=== PATIENT | female | born 2000 | race Caucasian/White ===

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

== ENCOUNTER 2021-02-16 14:54 | Emergency (ER) | payer OTHER ==
[~2021-02-16] VITALS: Ht 157.5 cm; Wt 59.7 kg
[~2021-02-16 14:54] MED LIST changes: +BACTRIM DS TAB1 EACH PO; +KEFLEX500 MG PO
[2021-02-16] MEDS ORDERED: PRENATAL GUMMI1 EACH PO (16:03)
[2021-02-16] MEDS ORDERED: HYDROCODON-ACE1 EA10 PO (18:13)
[2021-02-16] MEDS ORDERED: ONDANSETRON ODT8 MG PO (18:13)
[2021-02-17] MEDS ORDERED: IBUPROFEN600 MG PO (03:40)
== END 2021-02-16 18:43 | disposition home or self-care (01) ==
LOC: ED 14:54
DX: O02.1 Missed abortion (principal)
CPT/HCPCS: 76801; 81001; 99284-25

== ENCOUNTER 2021-02-17 03:23 | Day surgery (SDC) | payer OTHER ==
[~2021-02-17] VITALS: Ht 157.5 cm; Wt 59.4 kg
[~2021-02-17 03:23] MED LIST changes: +HYDROCODON-ACE1 EA10 PO; +PRENATAL GUMMI1 EACH PO
--- OUTSIDE RECORDS SUMMARY | 2021-02-17 03:30 | XMS ---
PreManage Notification: AMAN MEI Security Signals Intelligence Analysis Manager Events No recent Security Events currently on file CRITERIA MET - [facility] - 2 Visits in 30 Days CARE PROVIDERS TANNER VILLASENOR Nurse Practitioner 10/20/2016-Current LYN PHONE: [phone] LAMONTE FRANK Curriculum Writer: Clinical Current PHONE: [phone] Care Guidelines exist for the following facilities: [facility] ( [facility] [place] VISIT COUNT (12 MO.) [address] [facility] [address] [facility] [place] TOTAL 3 NOTE: Visits indicate total known visits. ED/UCC VISIT TRACKING (12 MO.) 02/17/2021 03:24 [facility] [place] TYPE: Emergency COMPLAINT: - VAGINAL BLEEDING 02/16/2021 14:55 [facility] [place] TYPE: Emergency COMPLAINT: - VAGINAL BLEEDING 07/24/2020 18:33 [facility] [place] TYPE: Emergency COMPLAINT: - NOSE RING PROBLEM DIAGNOSES: - Abscess, furuncle and carbuncle of nose INPATIENT VISIT TRACKING (12 MO.) No inpatient visits to display in this time frame [id number]
[2021-02-17] MEDS ORDERED: IBUPROFEN600 MG PO (03:40)
--- NOTE | 2021-02-17 08:13 | NUR ---
02/17/21 0813 Nereida Soto 0807 PT ARRIVED TO PACU WITH 6L VIA MASK IN PLACE. PT ASLEEP AND VSS. 0810 PT WAKES TO TACTILE STIMULI AND RN REORIENTING PT TO PACU, PT EYES REMAIN CLOSED.
--- NOTE | 2021-02-17 09:18 | NUR ---
0900: PT ARRIVES TO DS RM 6 FROM PACU DROWSY. PT AROUSES WITH VERBAL STIMULATION AND STATES, "I AM REALLY SAD." PT DENIES PAIN AND ASKS ABOUT BLEEDING. PT SIG OTHER AT BEDSIDE, CALL LIGHT WITHIN REACH.
--- NOTE | 2021-02-17 10:47 | NUR ---
CJ1500: PT RESTING IN BED WITH EYES CLOSED, MOTHER AT BEDSIDE ALSO WITH EYES CLOSED. BOTH PT AND MOTHER AROUSE WITH THIS RN ENTRANCE TO ROOM. MOTHER EXITS ROOM TO USE RESTROOM. PT VS OBTAINED, PT STATES THAT WHEN MOTHER GETS BACK IN ROOM SHE WOULD LIKE TO GET DRESSED AND DC HOME. PT DENIES ANY PAIN AND IS EDUCATED ABOUT BLEEDING, ASKS MANY QUESTIONS. PT ENCOURAGED TO OPEN CURTAIN WHEN DRESSED. 1010: PT OPENS CURTAIN. IV REMOVED WNL AND COBAN AND GAUZE PLACED, ENCOURAGED TO REMOVE IN APPROX 15-20 MINUTES. DC INSTRUCTIONS PRESENTED TO PT AND MOTHER. PT RETRIEVES PERSONAL CAR AND PULLS TO HOSPITAL FRONT ENTRANCE. PT DC VIA WC FROM DS RM 6 TO MOTHER WAITING AT FRONT ENTRANCE TO HOME.
--- NOTE | 2021-03-13 14:47 | CONS ---
[facility] [address] [place], [place] [address] Signed DATE OF CONSULTATION: 02/17/2021 REQUESTING PHYSICIAN: Dr. Boyd. HISTORY OF PRESENT ILLNESS: The patient is a 21-year-old female, 1, para 0, presented to the emergency room last evening with spotting and a diagnosis of missed AB by ultrasound. The fetus approx 9 wks size by her Ultrasound but was supposed to be 12 wks by her prior ultrasound. She presented again after her bleeding significantly increased with cramping. She was passing some clots as well as tissue. The bleeding has continued to be heavy however. Ultrasound revealed probable retained products. She has been cramping. She has received some IV pain medicine. PAST SURGICAL HISTORY: MEDICATIONS: vitamins. ALLERGIES: No known allergies. ILLNESSES: Positive for anxiety and panic attacks. Positive for hypoglycemia. Positive for orthostatic hypotension, possible POTS. Positive for a history of exercise-induced asthma. SURGERIES: Dmitriy kurtz in approximately in 2017. HABITS: Negative for tobacco, alcohol, or drug use. PHYSICAL EXAMINATION: VITAL SIGNS: On exam, blood pressure 93/52, pulse 63, she is afebrile. GENERAL: She is a well-developed, well-nourished female, in no acute distress. She is sleepy, but oriented and answers questions appropriately. LUNGS: Clear. HEART: Regular rate and rhythm without murmur. ABDOMEN: Soft, nontender. PELVIS: Deferred to the OR. LABORATORY DATA: Electronically Signed By: GIGI LYNCH MD 03/13/21 1447 PATIENT NAME: AMAN MEI CONSULTATION DATE OF : 01 REPORT #: [id number] PHYSICIAN: GIGI LYNCH MD PCP: DEANGELO ASH PA-C REPORT IS CONFIDENTIAL AND NOT TO BE RELEASED WITHOUT AUTHORIZATION [facility] [address] [place], [place] [address] Signed Her H and H were 12.7 and 37.2, white count 9.1, platelets 171. She is COVID negative. IMPRESSION/PLAN: Incomplete AB with continued bleeding and ultrasound consistent with retained products. I feel suction D and C is needed to control her bleeding and to complete the miscarriage. The risks of surgery including, but not limited to, infection and bleeding were discussed. She had no questions and requested no further information. Suction curettage as soon as this can be arranged at [facility]. MD ELYSSA Cleaning/MODL /[id number] Copies: ~ Electronically Signed By: GIGI LYNCH MD 03/13/21 1447 PATIENT NAME: AMAN MEI CONSULTATION DATE OF : 01 REPORT #: [id number] PHYSICIAN: GIGI LYNCH MD PCP: DEANGELO ASH PA-C REPORT IS CONFIDENTIAL AND NOT TO BE RELEASED WITHOUT AUTHORIZATION
--- NOTE | 2021-03-13 14:54 | OR ---
[facility] [address] [place], [place] [address] Signed DATE OF OPERATION: 02/17/2021 SURGEON: Carin Silva MD PREOPERATIVE DIAGNOSIS: Incomplete . POSTOPERATIVE DIAGNOSIS: Incomplete . PROCEDURE: Suction D and C. ANESTHESIA: MAC. ESTIMATED BLOOD LOSS: 50 mL. DRAINS: None. INDICATIONS AND FINDINGS: The patient is a 21-year-old female, 1, para 0, who initially presented to the emergency room last evening with a small amount of bleeding. She was diagnosed with a missed AB with size of 9 weeks 3 days. She was supposed to be 12 weeks by dates. Overnight she developed significantly heavier bleeding and presented back to the emergency room where she had passed a large amount of clots and tissue. Ultrasound was done which showed probable retained products. Because of the ongoing bleeding, it was felt that suction D and C was needed. At the time of surgery, her uterus was approximately 12 week size. The os was open. There was a very large amount of tissue within the cavity. DESCRIPTION OF PROCEDURE: The patient was prepped and draped in the dorsal lithotomy position. An open-sided speculum was placed. The anterior lip of the cervix was visualized and grasped with a single-tooth tenaculum. The endocervical canal easily accepted a #10 dilator. Following this, a #10 curved suction curette was introduced and a large amount of tissue was removed with the suction curette. Sharp curettage was then done with removal of a small amount of tissue. Suction and sharp curettage were alternated until the cavity Electronically Signed By: CARIN SILVA MD 03/13/21 1454 PATIENT NAME: AMAN MEI OPERATIVE REPORT DATE OF : 01 REPORT #: [id number] PHYSICIAN: CARIN SILVA MD PCP: ASHLEY ASH PA-C REPORT IS CONFIDENTIAL AND NOT TO BE RELEASED WITHOUT AUTHORIZATION [address], [place] [address] Signed felt clean and contracted. Following this, the tenaculum was removed. There was initially some light bleeding from the left hand tenaculum site which responded to pressure with a ring forceps. There was then no evidence of any active bleeding. The instruments removed and the patient was taken to the recovery room in good condition. Carin Silva MD PJW/LELIAL /[id number] cc: MD Ashley Gan PA-C Copies: BRITTNI LINDA MD, CHLOE K PA-C ~ Electronically Signed By: CARIN SILVA MD 03/13/21 1454 PATIENT NAME: AMAN MEI OPERATIVE REPORT DATE OF : 01 REPORT #: [id number] PHYSICIAN: CARIN SILVA MD PCP: ASHLEY ASH PA-C REPORT IS CONFIDENTIAL AND NOT TO BE RELEASED WITHOUT AUTHORIZATION
== END 2021-02-17 10:20 | disposition home or self-care (01) ==
LOC: ED 03:23 → DS 07:25
PROVIDERS: ATTEND Obstetrics & Gynecology
PROC: 10D17ZZ Extraction of Products of Conception, Retained, Via Natural or Artificial Opening (ICD-10-PCS; principal; 2021-02-17 08:00)
DX: O03.4 Incomplete spontaneous abortion without complication (principal)
CPT/HCPCS: 00952; 76801; 76817; 85025; 88305; 96374; 96375; 96376; 99285-25; C9803; J1170; J1885; J2405; J2704; J7030; J7121; U0003

== ENCOUNTER 2021-03-26 16:50 | Emergency (ER) | payer OTHER ==
[~2021-03-26] VITALS: Ht 157.5 cm; Wt 59.7 kg
[~2021-03-26 16:50] MED LIST changes: +IBUPROFEN600 MG PO
--- OUTSIDE RECORDS SUMMARY | 2021-03-26 16:52 | XMS ---
[facility] Notification: AMAN MEI Security Tucking Machine Operator Events No recent Security Events currently on file CRITERIA MET - PDMP CARE PROVIDERS TANNER VILLASENOR Nurse Practitioner 10/20/2016-Current LYN PHONE: [phone] DEANGELO ASH Physician Database Operator 02/22/2021-Current PHONE: [phone] LAMONTE FRANK Tube Machine Operator: Clinical Current PHONE: [phone] Care Guidelines exist for the following facilities: [facility] ( 09/21/2020 ) [place] VISIT COUNT (12 MO.) 4 MAR[facility]ELA Banks TOTAL 4 NOTE: Visits indicate total known visits. ED/UCC VISIT TRACKING (12 MO.) 03/26/2021 16:51 [facility] [place] TYPE: Emergency COMPLAINT: - R INDEX FINGER INJURY 02/17/2021 03:24 [facility] [place] TYPE: Emergency COMPLAINT: - VAGINAL BLEEDING 02/16/2021 14:55 [facility] [place] [place] TYPE: Emergency COMPLAINT: - VAGINAL BLEEDING DIAGNOSES: - Missed - Missed 07/24/2020 18:33 [facility] [place] TYPE: Emergency COMPLAINT: - NOSE RING PROBLEM DIAGNOSES: - Abscess, furuncle and carbuncle of nose INPATIENT VISIT TRACKING (12 MO.) No inpatient visits to display in this time frame [email or web address]
== END 2021-03-26 18:04 | disposition home or self-care (01) ==
LOC: ED 16:50
DX: S60.221A Contusion of right hand, initial encounter (principal); S60.021A Contusion of right index finger without damage to nail, initial encounter; W23.0XXA Caught, crushed, jammed, or pinched between moving objects, initial encounter; Y99.0 Civilian activity done for income or pay
CPT/HCPCS: 73130; 99283-25; A9270

== ENCOUNTER 2022-09-04 12:01 | Emergency (ER) | payer OTHER ==
[~2022-09-04] VITALS: Ht 157.5 cm; Wt 59.7 kg
[2022-09-04] MEDS ORDERED: VITAMIN C500 M1 (12:59)
[2022-09-04] MEDS ORDERED: PRENATAL VITAM1 EAC6 PO (12:59)
[2022-09-04] MEDS ORDERED: VANCOCIN HCL125 MG PO (12:59)
== END 2022-09-04 13:30 | disposition home or self-care (01) ==
LOC: ED 12:01
DX: A04.72 Enterocolitis due to Clostridium difficile, not specified as recurrent (principal)
CPT/HCPCS: 99283

== ENCOUNTER 2022-09-12 22:34 | Emergency (ER) | payer OTHER ==
[~2022-09-12] VITALS: Ht 157.5 cm; Wt 77.1 kg
[~2022-09-12 22:34] MED LIST changes: +PRENATAL VITAM1 EAC6 PO; +VANCOCIN HCL125 MG PO; +VITAMIN C500 M1
--- OUTSIDE RECORDS SUMMARY | 2022-09-12 22:43 | XMS ---
PreManage Notification: AMAN MEI Security Mold Release Worker Events No recent Security Events currently on file CRITERIA MET - [facility] - 2 Visits in 30 Days CARE PROVIDERS TANNER VILLASENOR Nurse Practitioner 10/20/2016-Palmer NICHOLSON PHONE: Unknown DEANGELO ASH Physician Delivery Mgr 02/22/2021-Current PHONE: [phone] LAMONTE FRANK Stucco Mason: Clinical Current PHONE: [phone] Care Guidelines exist for the following facilities: [facility] ( 09/21/2020 ) [place] VISIT COUNT (12 MO.) 2 MARISELA Banks TOTAL 2 NOTE: Visits indicate total known visits. ED/UCC VISIT TRACKING (12 MO.) 09/12/2022 22:34 [facility] [place] TYPE: Emergency COMPLAINT: - TIRED,SORE THROAT,SOB 09/04/2022 12:02 [facility] [place] TYPE: Emergency COMPLAINT: - WEAKNESS DIAGNOSES: - Enterocolitis due to Clostridium difficile, not specified as recurrent - Nausea with vomiting, unspecified INPATIENT VISIT TRACKING (12 MO.) No inpatient visits to display in this time frame [id number]
[2022-09-12] MEDS ORDERED: DIFLUCAN200 MG PO (23:23)
[2022-09-12] MEDS ORDERED: VANCOCIN HCL125 MG PO (23:24)
== END 2022-09-12 23:50 | disposition home or self-care (01) ==
LOC: ED 22:34
DX: B37.81 Candidal esophagitis (principal)
CPT/HCPCS: 87880; 99284; A9270

== ENCOUNTER 2022-10-02 15:22 | Emergency (ER) | payer OTHER ==
[~2022-10-02] VITALS: Ht 157.5 cm; Wt 77.1 kg
[~2022-10-02 15:22] MED LIST changes: +DIFLUCAN200 MG PO
--- OUTSIDE RECORDS SUMMARY | 2022-10-02 15:30 | XMS ---
PreManage Notification: AMAN MEI Security Tractor Trailer Technician Events No recent Security Events currently on file CRITERIA MET - [facility] [place] [facility] - 2 Visits in 30 Days CARE PROVIDERS -Lee- Dentist: First Aid Instructor [facility] PHONE: [phone] TANNER VILLASENOR Nurse Practitioner 10/20/2016-Current LYN PHONE: Unknown DEANGELO ASH Physician Charge Loader 02/22/2021-Current PHONE: [phone] LAMONTE FRANK Automatic Buffer: Clinical Current PHONE: [phone] Care Guidelines exist for the following facilities[facility] [place] VISIT COUNT (12 MO.) 3 [facility] TOTAL 3 NOTE: Visits indicate total known visits. ED/UCC VISIT TRACKING (12 MO.) 10/02/2022 15:22 [facility] [place] TYPE: Emergency COMPLAINT: - DIARRHEA 09/12/2022 22:34 [facility] [place] TYPE: Emergency COMPLAINT: - TIRED,SORE THROAT,SOB DIAGNOSES: - Candidal esophagitis - Acute pharyngitis, unspecified 09/04/2022 12:02 [facility] [place] [place] TYPE: Emergency COMPLAINT: - WEAKNESS DIAGNOSES: - Nausea with vomiting, unspecified - Enterocolitis due to Clostridium difficile, not specified as recurrent INPATIENT VISIT TRACKING (12 MO.) No inpatient visits to display in this time frame [email or web address]
[2022-10-02] MEDS ORDERED: VANCOMYCIN HCL125 MG PO (15:46)
== END 2022-10-02 15:56 | disposition home or self-care (01) ==
LOC: ED 15:22
DX: A04.72 Enterocolitis due to Clostridium difficile, not specified as recurrent (principal); Z79.899 Other long term (current) drug therapy
CPT/HCPCS: 99283

== ENCOUNTER 2023-01-04 09:16 | Emergency (ER) | payer OTHER ==
[~2023-01-04] VITALS: Ht 157.5 cm; Wt 74.3 kg
[~2023-01-04 09:16] MED LIST changes: +VANCOMYCIN HCL125 MG PO
[2023-01-04] MEDS ORDERED: ONDANSETRON ODT8 MG PO (12:04)
[2023-01-04 12:18] VITALS: BP 106/72
== END 2023-01-04 12:18 | disposition home or self-care (01) ==
LOC: ED 09:16
DX: K52.9 Noninfective gastroenteritis and colitis, unspecified (principal)
CPT/HCPCS: 36415; 80053; 81001; 84703; 85025; 99284; A9270

== ENCOUNTER 2023-05-23 18:31 | Emergency (ER) | payer OTHER ==
[~2023-05-23] VITALS: Ht 157.5 cm; Wt 71.6 kg
[2023-05-23] MEDS ORDERED: MULTI VITAMIN1 EACH PO (19:03)
[2023-05-23 19:07] LABS: BILIRUBIN, URINE NEGATIVE (negative); BLOOD/HGB, URINE NEGATIVE (Negative); KETONE, URINE NEGATIVE (Negative); LEUK ESTERASE, URINE TRACE (negative); NITRITE, URINE NEGATIVE (negative)
[2023-05-23 19:17] LABS: BACTERIA, URINE RARE /hpf (negative); CASTS, URINE NONE SEEN \\lpf; COLLECTION TYPE, URINE CLEAN CATCH; CRYSTALS, URINE NONE SEEN (0-1+); EPITHELIAL CELLS, URINE SQUAMOUS 3+ /lpf (0-1+); RED BLOOD CELLS, URINE 0-1 /hpf (0-5); REFLEX CULTURE, URINE No (No)
[2023-05-23 19:33] LABS: BILIRUBIN, URINE NEGATIVE (negative); BLOOD/HGB, URINE NEGATIVE (Negative); KETONE, URINE NEGATIVE (Negative); LEUK ESTERASE, URINE TRACE (negative); NITRITE, URINE NEGATIVE (negative)
[2023-05-23 19:43] LABS: BACTERIA, URINE RARE /hpf (negative); CASTS, URINE NONE SEEN \\lpf; COLLECTION TYPE, URINE CLEAN CATCH; CRYSTALS, URINE NONE SEEN (0-1+); EPITHELIAL CELLS, URINE SQUAMOUS 3+ /lpf (0-1+); RED BLOOD CELLS, URINE 0-1 /hpf (0-5); REFLEX CULTURE, URINE No (No)
[2023-05-23 20:24] LABS: BASOPHILS 0.3 % (0-2); EOSINOPHILS 1.2 % (0-6); HEMATOCRIT 32.5 % (35.0-50.0); HEMOGLOBIN 11.6 g/dL (12.0-18.0); LYMPHOCYTES 18.7 % (24-44); MCH 30.8 (27-36); MCHC 35.5 g/dl (30-36); MCV 86.6 fl (81-99); MONOCYTES 5.2 % (0-12); NEUTROPHILS 74.6 % (39-80); PLATELET COUNT 155 K/uL (140-440); RBC 3.76 M/ul (4.3-5.7); RDW 13.8 (10.5-15.0)
[2023-05-23 20:40] LABS: ALBUMIN 3.2 g/dL (3.4-5.0); ALBUMIN/GLOBULIN RATIO 0.94 (1.1-2.4); ANION GAP 14.4 (7-21); BILIRUBIN, TOTAL 0.3 ng/dL (0.2-1.0); BUN/CREATININE RATIO 9.43 (6.0-28.6); CALCIUM 8.8 mg/dL (8.5-10.1); CREATININE, SERUM 0.53 mg/dL (0.55-1.02); POTASSIUM 3.4 mmol/L (3.5-5.1); PROTEIN, TOTAL 6.6 g/dL (6.4-8.2)
[2023-05-23 20:52] LABS: ABO A; RH POSITIVE
[2023-05-23] MEDS ORDERED: CYCLOBENZAPRINE10 MG PO (21:34)
[2023-05-23 22:20] VITALS: BP 110/79
== END 2023-05-23 22:20 | disposition home or self-care (01) ==
LOC: ED 18:31
PROVIDERS: Emergency Medicine; Family Medicine
DX: O26.892 Other specified pregnancy related conditions, second trimester (principal); R10.32 Left lower quadrant pain; Z3A.15 15 weeks gestation of pregnancy
CPT/HCPCS: 36415; 76805; 76815; 80053; 81001; 85025; 86900; 86901; J7121

== ENCOUNTER 2023-06-10 10:12 | Emergency (ER) | payer OTHER ==
[~2023-06-10] VITALS: Ht 157.5 cm; Wt 71.8 kg
[~2023-06-10 10:12] MED LIST changes: +CYCLOBENZAPRINE10 MG PO; +MULTI VITAMIN1 EACH PO
--- OUTSIDE RECORDS SUMMARY | 2023-06-10 10:20 | XMS ---
PreManage Notification: AMAN MEI Security Cushion Gum Applicator Events No recent Security Events currently on file CRITERIA MET - [facility] - 2 Visits in 30 Days CARE PROVIDERS DEANGELO ASH Physician Medical Care Manager 02/22/2021-Current PHONE: [phone] TANNER VILLASENOR Nurse Practitioner 10/20/2016-Current LYN PHONE: Unknown -Lee- Dentist: Sample Box Maker [facility] PHONE: [phone] -Zarina- Dentist: Sample Box Maker [facility] PHONE: [phone] LAMONTE FRANK Plywood Patcher: Clinical Current PHONE: [phone] Care Guidelines exist for the following facilities: [facility] [place] VISIT COUNT (12 MO.) 6 MAR[facility]ELA Banks TOTAL 6 NOTE: Visits indicate total known visits. ED/UCC VISIT TRACKING (12 MO.) 06/10/2023 10:13 [facility] [place] [place] TYPE: Emergency COMPLAINT: - VAGINAL BLEEDING 05/23/2023 18:32 [facility] [place] TYPE: Emergency COMPLAINT: - ABDOMINAL PAIN/ 15 WEEKS PREG DIAGNOSES: - 15 weeks gestation of - Left lower quadrant pain - Other specified related conditions, second trimester 01/04/2023 09:17 [facility] [place] TYPE: Emergency COMPLAINT: - WEAKNESS DIAGNOSES: - Noninfective gastroenteritis and colitis, unspecified - Weakness 10/02/2022 15:22 [facility] [place] TYPE: Emergency COMPLAINT: - DIARRHEA DIAGNOSES: - Diarrhea, unspecified - Enterocolitis due to Clostridium difficile, not specified as recurrent - Other nursing home (current) drug therapy 09/12/2022 22:34 [facility] [place] [facility] [place] TYPE: Emergency COMPLAINT: - TIRED,SORE THROAT,SOB DIAGNOSES: - Acute pharyngitis, unspecified - Candidal esophagitis 09/04/2022 12:[address] [facility] [place] TYPE: Emergency COMPLAINT: - WEAKNESS DIAGNOSES: - Enterocolitis due to Clostridium difficile, not specified as recurrent - Nausea with vomiting, unspecified INPATIENT VISIT TRACKING (12 MO.) No inpatient visits to display in this time frame [id number]
[2023-06-10 10:56] LABS: BILIRUBIN, URINE NEGATIVE (negative); BLOOD/HGB, URINE NEGATIVE (Negative); KETONE, URINE NEGATIVE (Negative); LEUK ESTERASE, URINE NEGATIVE (negative); NITRITE, URINE NEGATIVE (negative)
[2023-06-10 12:41] VITALS: BP 119/90
== END 2023-06-10 12:33 | disposition home or self-care (01) ==
LOC: ED 10:12
PROVIDERS: Emergency Medicine
DX: O20.0 Threatened abortion (principal); Z3A.18 18 weeks gestation of pregnancy
CPT/HCPCS: 81003; 99284

== ENCOUNTER 2023-06-23 12:45 | Emergency (ER) | payer OTHER ==
[~2023-06-23] VITALS: Ht 157.5 cm; Wt 74.3 kg
--- OUTSIDE RECORDS SUMMARY | 2023-06-23 12:54 | XMS ---
PreManage Notification: AMAN MEI Security Channel Rougher Events No recent Security Events currently on file CRITERIA MET - [facility] - 2 Visits in 30 Days CARE PROVIDERS DEANGELO ASH Physician Sueding Machine Tender 02/22/2021-Current PHONE: [phone] TANNER VILLASENOR Nurse Practitioner 10/20/2016-Current LYN PHONE: Unknown -Lee- Dentist: Painter Interior Finish [facility] PHONE: [phone] -Zarina- Dentist: Painter Interior Finish [facility] PHONE: [phone] LAMONTE FRANK Supervisor Respiratory: Clinical Current PHONE: [phone] Care Guidelines exist for the following facilities: [facility] ( [facility] [place] VISIT COUNT (12 MO.) 7 [facility]ELA Banks TOTAL 7 NOTE: Visits indicate total known visits. ED/UCC VISIT TRACKING (12 MO.) 06/23/2023 12:46 [facility] [place] TYPE: Emergency COMPLAINT: - LOWER BACK PAIN 06/10/2023 10:[address] [facility] [place] TYPE: Emergency COMPLAINT: - VAGINAL BLEEDING DIAGNOSES: - 18 weeks gestation of - Hemorrhage in early , unspecified - Threatened 05/23/2023 18:[address] [facility] [place] TYPE: Emergency COMPLAINT: - ABDOMINAL PAIN/ 15 WEEKS PREG DIAGNOSES: - 15 weeks gestation of - Left lower quadrant pain - Other specified related conditions, second trimester 01/04/2023 09:17 [facility] [place] [facility] TYPE: Emergency COMPLAINT: - WEAKNESS DIAGNOSES: - Noninfective gastroenteritis and colitis, unspecified - Weakness 10/02/2022 15:22 [facility] [place] TYPE: Emergency COMPLAINT: - DIARRHEA DIAGNOSES: - Diarrhea, unspecified - Enterocolitis due to Clostridium difficile, not specified as recurrent - Other [facility] (current) drug therapy 09/12/2022 22:34 [facility] [place] TYPE: Emergency COMPLAINT: - TIRED,SORE THROAT,SOB DIAGNOSES: - Acute pharyngitis, unspecified - Candidal esophagitis 09/04/2022 12:02 [facility] [place] [place] TYPE: Emergency COMPLAINT: - WEAKNESS DIAGNOSES: - Enterocolitis due to Clostridium difficile, not specified as recurrent - Nausea with vomiting, unspecified INPATIENT VISIT TRACKING (12 MO.) No inpatient visits to display in this time frame [id number]
[2023-06-23 13:12] LABS: BILIRUBIN, URINE NEGATIVE (negative); BLOOD/HGB, URINE NEGATIVE (Negative); KETONE, URINE NEGATIVE (Negative); LEUK ESTERASE, URINE MODERATE (negative); NITRITE, URINE NEGATIVE (negative); PH, URINE 5.5 (5-7)
[2023-06-23] MEDS ORDERED: PRENA1 TRUE CO1 EACH PO (13:20)
[2023-06-23 13:22] LABS: CRYSTALS, URINE NONE SEEN (0-1+); EPITHELIAL CELLS, URINE SQUAMOUS 3+ /lpf (0-1+); RED BLOOD CELLS, URINE 0-1 /hpf (0-5)
[2023-06-23 13:23] LABS: BACTERIA, URINE RARE /hpf (negative); CASTS, URINE NONE SEEN \\lpf; COLLECTION TYPE, URINE CLEAN CATCH; REFLEX CULTURE, URINE No (No)
[2023-06-23 15:02] LABS: WBC, WET MOUNT 4+ (NEGATIVE)
[2023-06-23 15:03] LABS: BACTERIA, WET MOUNT 1+ (NEGATIVE); CLUE CELLS, WET MOUNT NEGATIVE (NEGATIVE); EPITHELIAL CELLS, WET MOUNT 3+ (NEGATIVE); RBC, WET MOUNT NEGATIVE (NEGATIVE); TRICHOMONAS, WET MOUNT NEGATIVE (NEGATIVE); YEAST, WET MOUNT NEGATIVE (NEGATIVE)
[2023-06-23 15:04] LABS: SOURCE, WET MOUNT NOT STATED
[2023-06-23 15:44] LABS: N. GONORRRHOEAE BY PCR NOT DETECTED (NOT DETECT)
[2023-06-23 16:16] VITALS: BP 140/86
== END 2023-06-23 16:16 | disposition home or self-care (01) ==
LOC: ED 12:45
PROVIDERS: Emergency Medicine
DX: O98.312 Other infections with a predominantly sexual mode of transmission complicating pregnancy, second trimester (principal); A56.02 Chlamydial vulvovaginitis; A56.09 Other chlamydial infection of lower genitourinary tract; Z3A.19 19 weeks gestation of pregnancy; Z79.899 Other long term (current) drug therapy
CPT/HCPCS: 81001; 87210; 99283; A9270

== ENCOUNTER 2024-04-13 11:01 | Emergency (ER) | payer OTHER ==
[~2024-04-13] VITALS: Ht 157.5 cm; Wt 85.3 kg
[~2024-04-13 11:01] MED LIST changes: +JENCYCLA0.35 MG PO; +NAPROSYN500 MG PO; +PRENA1 TRUE CO1 EACH PO
[2024-04-13] MEDS ORDERED: SODIUM CHLORIDE 0.9% 1,000 ML IV PRN (11:30)
[2024-04-13] MEDS ORDERED: ondansetron HCL 4 MG/2 ML VIAL IV ONE (11:30)
[2024-04-13 11:49] LABS: BASOPHILS 0.1 % (0-2); EOSINOPHILS 1.3 % (0-6); HEMATOCRIT 33.7 % (35.0-50.0); HEMOGLOBIN 11.5 g/dL (12.0-18.0); LYMPHOCYTES 17.6 % (24-44); MCH 26.4 (27-36); MCV 77.5 fl (81-99); MONOCYTES 5.7 % (0-12); NEUTROPHILS 75.3 % (39-80); PLATELET COUNT 165 K/uL (140-440); RBC 4.35 M/ul (4.3-5.7); RDW 17.9 (10.5-15.0)
[2024-04-13 12:06] LABS: ALBUMIN 3.3 g/dL (3.4-5.0); ALBUMIN/GLOBULIN RATIO 0.83 (1.1-2.4); ANION GAP 14.5 (7-21); BILIRUBIN, TOTAL 0.4 ng/dL (0.2-1.0); BUN/CREATININE RATIO 9.37 (6.0-28.6); CREATININE, SERUM 0.64 mg/dL (0.55-1.02); MAGNESIUM 1.6 mg/dL (1.8-2.4); POTASSIUM 3.5 mmol/L (3.5-5.1); PROTEIN, TOTAL 7.3 g/dL (6.4-8.2)
[2024-04-13 12:50] LABS: BILIRUBIN, URINE NEGATIVE (negative); BLOOD/HGB, URINE NEGATIVE (Negative); KETONE, URINE TRACE (Negative); LEUK ESTERASE, URINE NEGATIVE (negative); NITRITE, URINE NEGATIVE (negative)
[2024-04-13] MEDS ORDERED: ONDANSETRON ODT8 MG SL (13:04)
[2024-04-13 13:20] VITALS: BP 113/69
== END 2024-04-13 13:20 | disposition home or self-care (01) ==
LOC: ED 11:01
PROVIDERS: Emergency Medicine
DX: O21.9 Vomiting of pregnancy, unspecified (principal); Z3A.10 10 weeks gestation of pregnancy; Z79.899 Other long term (current) drug therapy
CPT/HCPCS: 36415; 80053; 81003; 83690; 83735; 84550; 85025; 96374; 99284-25; J2405; J7030

== ENCOUNTER 2024-05-28 16:12 | Emergency (ER) | payer OTHER ==
[~2024-05-28] VITALS: Ht 157.5 cm; Wt 88.0 kg
[~2024-05-28 16:12] MED LIST changes: +ONDANSETRON ODT8 MG SL
[2024-05-28] MEDS ORDERED: ASPIRIN81 MG PO (18:51)
[2024-05-28] MEDS ORDERED: AMOXICILLIN500 MG PO (18:51)
[2024-05-28 18:59] LABS: BILIRUBIN, URINE NEGATIVE (negative); BLOOD/HGB, URINE NEGATIVE (Negative); KETONE, URINE NEGATIVE (Negative); LEUK ESTERASE, URINE NEGATIVE (negative); NITRITE, URINE NEGATIVE (negative); PH, URINE 6.5 (5-7)
[2024-05-28 19:17] LABS: RED BLOOD CELLS, URINE 0-1 /hpf (0-5); WHITE BLOOD CELLS, URINE 0-1 /HPF (0-5)
[2024-05-28 19:18] LABS: BACTERIA, URINE NONE SEEN /hpf (negative); CASTS, URINE NONE SEEN \\lpf; COLLECTION TYPE, URINE CLEAN CATCH; CRYSTALS, URINE AMORPHOUS URATES 1+ (0-1+); EPITHELIAL CELLS, URINE SQUAMOUS 1+ /lpf (0-1+); REFLEX CULTURE, URINE No (No)
[2024-05-28] MEDS ORDERED: TRAMADOL HCL 50 MG TAB PO ONE (20:00)
[2024-05-28] MEDS ORDERED: TRAMADOL HCL50 MG PO (20:18)
[2024-05-28 20:30] VITALS: BP 115/80
[2024-05-28] MEDS ORDERED: TRAMADOL HCL 50 MG HOME.PACK PO ONE (20:30)
== END 2024-05-28 20:31 | disposition home or self-care (01) ==
LOC: ED 16:12
PROVIDERS: Emergency Medicine
DX: O9A.212 Injury, poisoning and certain other consequences of external causes complicating pregnancy, second trimester (principal); S39.012A Strain of muscle, fascia and tendon of lower back, initial encounter; Z3A.16 16 weeks gestation of pregnancy; Z79.2 Long term (current) use of antibiotics; Z79.82 Long term (current) use of aspirin; Z79.899 Other long term (current) drug therapy; X58.XXXA Exposure to other specified factors, initial encounter
CPT/HCPCS: 81001; 99283; A9270

== ENCOUNTER 2024-06-13 16:03 | Emergency (ER) | payer OTHER ==
[~2024-06-13] VITALS: Ht 157.5 cm; Wt 88.3 kg
[~2024-06-13 16:03] MED LIST changes: +AMOXICILLIN500 MG PO; +ASPIRIN81 MG PO; +TRAMADOL HCL50 MG PO
--- OUTSIDE RECORDS SUMMARY | 2024-06-13 16:10 | XMS ---
PreManage Notification: AMAN MEI Security Fur Scraper Events No recent Security Events currently on file CRITERIA MET - [facility] - 2 Visits in 30 Days CARE PROVIDERS TANNER VILLASENOR Nurse Practitioner 10/20/2016-Palmer NICHOLSON PHONE: Unknown -[facility] Dentist: Networking Technology Instructor Current [place] PHONE: [phone] -Lee- Dentist: Networking Technology Instructor [facility] PHONE: [phone] -Zarina- Dentist: Networking Technology Instructor Current [facility] PHONE: [phone] [facility]: Unknown LAMONTE FRANK Predatory Game Hunter: Clinical Current PHONE: [phone] Care Guidelines exist for the following facilities: [facility] ( 12/25/2018 ) Ignacio VISIT COUNT (12 MO.) 7 [facility] NOTE: Visits indicate total known visits. ED/UCC VISIT TRACKING (12 MO.) 06/13/2024 16:04 [facility] [place] TYPE: Emergency COMPLAINT: - SHORTNESS OF BREATH/HEADACHE 05/28/2024 16:13 [facility] [place] TYPE: Emergency COMPLAINT: - BACK PAIN/ 16 WEEKS DIAGNOSES: - 16 weeks gestation of - Exposure to other specified factors, initial encounter - Injury, poisoning and certain other consequences of external causes complicating , second trimester - ocean transportation intermediary (current) use of antibiotics - skilled nursing (current) use of aspirin - Other extermination inspector (current) drug therapy - Other specified diseases and conditions complicating - Strain of muscle, fascia and tendon of lower back, initial encounter 04/13/2024 11:01 [facility]A [facility] [place] TYPE: Emergency COMPLAINT: - HIGH BLOOD PRESSURE DIAGNOSES: - 10 weeks gestation of - Other [place] [facility] [place] (current) drug therapy - Vomiting of , unspecified 01/17/2024 12:37 [facility] [place] TYPE: Emergency COMPLAINT: - LT WRIST INJURY DIAGNOSES: - Overexertion from strenuous movement or load, initial encounter - Pain in left wrist - Unspecified sprain of left wrist, initial encounter 11/12/2023 09:21 [facility] [place] TYPE: Emergency COMPLAINT: - VOMITING DIAGNOSES: - Vomiting, unspecified 08/28/2023 15:54 [facility] TYPE: Emergency DIAGNOSES: - Chest Pain - Hand Swelling 08/23/2023 13:56 [facility] [place] TYPE: Emergency COMPLAINT: - SOB, NAUSEA, 28 WKS PG DIAGNOSES: - 28 weeks gestation of - Eclampsia complicating , third trimester - Encounter for screening for COVID-19 - Shortness of breath 06/23/2023 12:46 [facility] [place] TYPE: Emergency COMPLAINT: - LOWER BACK PAIN DIAGNOSES: - 19 weeks gestation of - Chlamydial vulvovaginitis - Low back pain, unspecified - Other chlamydial infection of lower genitourinary tract - Other infections with a predominantly sexual mode of transmission complicating , second trimester - Other [place] [facility] [place] (current) drug therapy INPATIENT VISIT TRACKING (12 MO.) [facility]23[facility]23 18:[facility] DIAGNOSES: - Encounter for delivery without indication - Unspecified pre-eclampsia, third trimester - 28 weeks gestation with Preeclampsia [email or web address]
[2024-06-13 16:48] LABS: BASOPHILS 0.3 % (0-2); EOSINOPHILS 1.4 % (0-6); HEMATOCRIT 31.2 % (35.0-50.0); LYMPHOCYTES 16.4 % (24-44); MCH 29.5 (27-36); MCHC 35.1 g/dl (30-36); MCV 83.9 fl (81-99); MONOCYTES 4.4 % (0-12); NEUTROPHILS 77.5 % (39-80); PLATELET COUNT 160 K/uL (140-440); RBC 3.71 M/ul (4.3-5.7); RDW 17.3 (10.5-15.0)
[2024-06-13 17:02] LABS: ALBUMIN 2.6 g/dL (3.4-5.0); ALBUMIN/GLOBULIN RATIO 0.67 (1.1-2.4); ALKALINE PHOSPHATASE 73 U/L (46-116); ALT (SGPT) 22 U/L (14-59); ANION GAP 13.2 (7-21); AST (SGOT) 12 U/L (15-37); BILIRUBIN, TOTAL 0.2 ng/dL (0.2-1.0); CALCIUM 8.9 mg/dL (8.5-10.1); CARBON DIOXIDE 25 mmol/L (21-32); CHLORIDE 106 mmol/L (98-107); CREATININE, SERUM 0.56 mg/dL (0.55-1.02); GLOMERULAR FILTRATION RATE,EST 131 mL/min (>60); MAGNESIUM 1.7 mg/dL (1.8-2.4); POTASSIUM 3.2 mmol/L (3.5-5.1); PROTEIN, TOTAL 6.5 g/dL (6.4-8.2); UREA NITROGEN 7 mg/dL (7-18)
[2024-06-13 18:01] LABS: BILIRUBIN, URINE NEGATIVE (negative); BLOOD/HGB, URINE NEGATIVE (Negative); KETONE, URINE NEGATIVE (Negative); LEUK ESTERASE, URINE NEGATIVE (negative); NITRITE, URINE NEGATIVE (negative)
[2024-06-13 18:30] VITALS: BP 114/80
--- NOTE | 2024-06-13 19:42 | EKG ---
[facility] [address] [facility] [address] [place] [address] Signed Normal sinus rhythm Normal ECG When compared with ECG of 23-AUG-2023 14:44, Vent. rate has increased BY 32 BPM Confirmed by Yrn Connors MD ([id number]) on 06/13/2024 7:41:43 PM Electronically Signed By: YRN CONNORS MD 06/13/241941 PATIENT NAME: AMAN MEI LOLA Electrocardiogram DATE OF : 01 PHYSICIAN: YRN CONNORS MD REPORT #: [id number] REPORT IS CONFIDENTIAL AND NOT TO BE RELEASED WITHOUT AUTHORIZATION
== END 2024-06-13 18:30 | disposition home or self-care (01) ==
LOC: ED 16:03
PROVIDERS: Emergency Medicine
DX: O99.891 Other specified diseases and conditions complicating pregnancy (principal); R51.9 Headache, unspecified; R07.89 Other chest pain; Z3A.19 19 weeks gestation of pregnancy; Z87.59 Personal history of other complications of pregnancy, childbirth and the puerperium
CPT/HCPCS: 36415; 80053; 81003; 83735; 84484; 85025; 93005; 93010; 99284

== ENCOUNTER 2024-08-25 04:36 | Emergency (ER) | payer OTHER ==
[~2024-08-25] VITALS: Ht 157.5 cm; Wt 98.0 kg
[2024-08-25] MEDS ORDERED: MAGNESIUM200 MG (05:04)
[2024-08-25 05:19] LABS: INFLUENZA A RNA NEGATIVE; INFLUENZA B RNA NEGATIVE
[2024-08-25] MEDS ORDERED: INHALER, ASSIST DEVICES 1 EACH SPACER MISC ONE (05:45)
[2024-08-25] MEDS ORDERED: ALBUTEROL SULFATE 8 GM HOME.PACK INH ONE (05:45)
[2024-08-25 05:50] VITALS: BP 110/66
== END 2024-08-25 05:58 | disposition home or self-care (01) ==
LOC: ED 04:36
PROVIDERS: Family Medicine
DX: O98.513 Other viral diseases complicating pregnancy, third trimester (principal); B34.9 Viral infection, unspecified; Z3A.29 29 weeks gestation of pregnancy; Z79.899 Other long term (current) drug therapy
CPT/HCPCS: 87502; 87651; 94640; 94664; 99283

== ENCOUNTER 2024-11-04 09:25 | Inpatient (IN) | payer OTHER ==
[~2024-11-04] VITALS: Ht 157.5 cm; Wt 104.3 kg
[~2024-11-04 09:25] MED LIST changes: +MAGNESIUM200 MG
[2024-11-04 09:57] LABS: AMNISURE ROM TEST POSITIVE
[2024-11-04 10:27] VITALS: BP 126/64
[2024-11-04] MEDS ORDERED: AZITHROMYCIN 500 MG in DEXTROSE 5% 250 ML IV ONE (10:30)
[2024-11-04] MEDS ORDERED: SOD+POT BICARB/CITRIC ACID 2 EA TABLET.EFF PO ONE (10:30)
[2024-11-04] MEDS ORDERED: CEFAZOLIN SODIUM 3 GM/30 ML SYR IV SCH (10:30)
[2024-11-04] MEDS ORDERED: LACTATED RINGER'S 1,000 ML IV PRN (10:30)
[2024-11-04 10:42] LABS: HEMATOCRIT 38.3 % (35.0-50.0); MCV 85.3 fl (81-99); RBC 4.5 M/ul (4.3-5.7); RDW 15.9 (10.5-15.0)
[2024-11-04] MEDS ORDERED: KETOROLAC TROMETHAMINE 30 MG/ML VIAL ONE (10:46)
[2024-11-04] MEDS ORDERED: ondansetron HCL 4 MG/2 ML VIAL ONE (10:46)
[2024-11-04] MEDS ORDERED: DEXAMETHASONE SOD PHOS 4 MG/ML VIAL ONE ×2 (10:46→10:59)
[2024-11-04] MEDS ORDERED: PHENYLEPHRINE HCL 10 MG/ML VIAL ONE (10:46)
[2024-11-04] MEDS ORDERED: OXYTOCIN 10 UNITS/ML VIAL ONE (10:46)
[2024-11-04] MEDS ORDERED: SODIUM CHLORIDE 0.9% 20 ML IV ONE (10:49)
[2024-11-04] MEDS ORDERED: ePHEDrine sulfate 50 MG/ML AMP ONE (10:50)
[2024-11-04] MEDS ORDERED: MORPHINE SULFATE 1 MG/ML VIAL ONE (10:50)
[2024-11-04] MEDS ORDERED: BUPIVACAINE 0.75% IN DEXTROSE 2 ML AMP ONE (10:50)
[2024-11-04] MEDS ORDERED: fentaNYL citrate 100 MCG/2 ML VIAL ONE (10:50)
[2024-11-04] MEDS ORDERED: LIDOCAINE HCL 2% 5 ML SDV ONE (10:55)
[2024-11-04] MEDS ORDERED: SODIUM CHLORIDE 0.9% 60 ML IV ONE (10:59)
[2024-11-04] MEDS ORDERED: dexmedeTOMIDine HCl 200 MCG/2 ML VIAL ONE (10:59)
[2024-11-04] MEDS ORDERED: Ropivacaine HCl 0.5% 30 ML VIAL ONE (10:59)
[2024-11-04 11:08] LABS: ABO A; ANTIBODY SCREEN NEGATIVE; RH POSITIVE
[2024-11-04 12:03] LABS: CANNABINOID, URINE NEGATIVE (NEGATIVE); METHADONE, URINE NEGATIVE (NEGATIVE); PHENCYCLIDINE, URINE NEGATIVE (NEGATIVE)
[2024-11-04 12:12] LABS: AMPHETAMINES, URINE NEGATIVE (NEGATIVE); BARBITURATES, URINE NEGATIVE (NEGATIVE); BENZODIAZEPINE, URINE NEGATIVE (NEGATIVE); BUPRENORPHINE, URINE NEGATIVE (NEGATIVE); COCAINE, URINE NEGATIVE (NEGATIVE); ECSTASY, URINE NEGATIVE (NEGATIVE); FENTANYL, URINE NEGATIVE (NEGATIVE); OPIATES, URINE NEGATIVE (NEGATIVE); OXYCODONE, URINE NEGATIVE (NEGATIVE)
[2024-11-04] MEDS ORDERED: ACETAMINOPHEN 1,000 MG/100 ML VIAL ONE (12:23)
[2024-11-04] MEDS ORDERED: bisacodyL 10 MG SUPP PR PRN (13:00)
[2024-11-04] MEDS ORDERED: METOCLOPRAMIDE HCL 10 MG/2 ML SDV IV PRN (13:00)
[2024-11-04] MEDS ORDERED: OXYTOCIN/0.9 % SODIUM CHLORIDE 500 ML IV SCH (13:00)
[2024-11-04] MEDS ORDERED: ondansetron HCL 4 MG/2 ML VIAL IV PRN ×2 (13:00→13:30)
[2024-11-04] MEDS ORDERED: PROMETHAZINE HCL 25 MG SUPP PR PRN (13:00)
[2024-11-04] MEDS ORDERED: HYDROCODONE/ACETA 5/325 TAB PO PRN (13:00)
[2024-11-04] MEDS ORDERED: PROCHLORPERAZINE EDISYLATE 10 MG/2 ML VIAL IV PRN (13:00)
[2024-11-04] MEDS ORDERED: OXYCODONE/APAP 5/325 TAB PO PRN (13:00)
[2024-11-04] MEDS ORDERED: LACTATED RINGER'S 1,000 ML IV SCH (13:00)
[2024-11-04] MEDS ORDERED: PROMETHAZINE HCL 25 MG TAB PO PRN (13:00)
[2024-11-04] MEDS ORDERED: IBLOOD GLUCOSE TEST STRIP 1 EA TEST VI PRN (13:30)
[2024-11-04] MEDS ORDERED: fentaNYL citrate 50 MCG/ML SDV IV PRN (13:30)
[2024-11-04] MEDS ORDERED: NALOXONE HCL 0.4 MG SYR IV PRN (13:30)
[2024-11-04] MEDS ORDERED: KETOROLAC TROMETHAMINE 30 MG/ML VIAL IV SCH ×2 (14:00→20:00)
[2024-11-04 15:38] VITALS: BP 115/53
[2024-11-04] MEDS ORDERED: SIMETHICONE 80 MG CHEW PO SCH (16:00)
--- NOTE | 2024-11-04 16:12 | NUR ---
11/04/24 1612 [place] 1308-PT TRANSFERRED FROM OR TO [facility] RM 103 VIA BED. PT ON RA WITH SATS STABLE ABOVE 92%. PTS MOTHER AND SPOUSE IN ROOM WITH BABY UPON ARRIVAL. PT DENIES PAIN OR NAUSEA WHEN ASKED. PT REPORTS FEELING "TIRED". 1310-IV SITE ASSESSED IN LAC. PATENT AND INFUSING PER ORDERS. FUNDAL CHECK COMPLETED. FUNDUS FIRM, AT UMBILLICUS AND SLIGHTLY TILTED TO THE RIGHT. SMALL AMT OF RUBRA LOCHIA NOTED ON THANG PAD WITH FUNDAL MASSAGE. NO CLOTS SEEN. SURGICAL DRSG TO ABD APPEARS CDI. 1311-BABY TO BREAST WITH [facility] NURSE ASSISTANCE. POWELL DRAINAGE TO GRAVITY. NOTED SMALL AMT OF CLR, YELLOW URINE. APPEARS SLIGHTLY CONCENTRATED. 1313-SPINAL LEVEL NOTED TO BE AT APPROX T6. SATS REMAIN STABLE ON RA. BREATHING APPEARS EVEN AND UNLABORED. 1318-PT CONT TO DENY NAUSEA OR PAIN WHEN ASKED. PT WORKING WITH [facility] NURSE FOR . 1320-FUNDAL CHECK COMPLETED. NO ACUTE CHANGES NOTED FROM INITIAL FUNDAL CHECK. CATH SECURE PLACED ON PTS L INNER THIGH TO PREVENT PULLING OF POWELL CATH. 1325-PT DOZING ON AND OFF. VS REMAIN STABLE. BABY IN ROOM WITH [facility] NURSE. PTS SPOUSE AND MOTHER REMAIN AT PTS BEDSIDE. 1330-PT WITH SMALL AMT OF URINE NOTED IN POWELL DRAINAGE BAG, APPROX 20ML. [facility] NURSE DECLINED FOR THIS RN TO DRAIN. PT CONT TO DENY NAUSEA OR PAIN WHEN ASKED. PT DOZING OFF AND ON, EASILY AROUSES TO VERBAL STIMULI. 1333-NOTED IV FLOW DECREASED. STRAIGHTENED PTS ARM AND FLUSHED WITH 10 ML NS. NO S/SX INFECTION/INFILTRATION NOTED. IV NOTED TO BE INFUSING WELL NOW. 1335-SPINAL LEVEL REMAINS AT T-6. PT DENIES PAIN OR NAUSEA. VSS. FUNDAL CHECK COMPLETED WITH [facility] PASQUALE ALVARADO, FUNDUS FIRM, AT UMBILICUS AND TO THE RIGHT SLIGHTLY. LOCHIA IS RUBRA WITH SMALL AMT NOTED ON THANG-PAD. ABD DRSG REMAINS CDI. POWELL DRAINING TO GRAVITY WITH SCANT AMT IN DRAINAGE BAG. PT DENIES PAIN OR NAUSEA. PTS SPOUSE AND MOTHER REMAIN IN ROOM WITH BABY AT PTS BEDSIDE. PT RESTING WITH EYES CLOSED. REPORT GIVEN TO [facility] PASQUALE ALVARADO. INFORMED OF CONCENTRATED URINE FOR WHICH THIS RN WAS INFORMED WAS BASELINE UPON ADMISSION. ALL QUESTIONS ANSWERED. BED IN LOW POSITION, WHEELS LOCKED, BILAT RAILS IN PLACE, AND CALL LIGHT WITHIN PT REACH.
--- NOTE | 2024-11-04 17:10 | OR ---
[facility] [address] [place], [place] [address] Signed DATE OF OPERATION: 11/04/2024 SURGEON: Edith Rey DO PREOPERATIVE DIAGNOSES: 1. Term . 2. History of prior . 3. Spontaneous labor with rupture of membranes. POSTOPERATIVE DIAGNOSES: 1. Term . 2. History of prior . 3. Spontaneous labor with rupture of membranes. PROCEDURE PERFORMED: Repeat low transverse section. ANESTHESIA: Spinal with postoperative TAP block. QUANTITATIVE BLOOD LOSS: 75 mL. DRAINS: Blackwell to gravity. SPECIMENS: Cord blood for routine analysis. COMPLICATIONS: None. FINDINGS: Delivery of viable female , 6 pounds 6 ounces with Apgars of nine and nine. Born in the SERA position with clear fluid and no nuchal cord. Normal uterus, tubes, and ovaries. INDICATIONS: Mrs. Mei is a very pleasant 24-year-old, G3, P0-1-1-1 with intrauterine at 38 and 6 weeks' gestation, who presents to Labor and Delivery, complaining of rupture of Electronically Signed By: EDITH REY DO (JD) 11/04/24 1710 PATIENT NAME: AMAN MEI OPERATIVE REPORT DATE OF : 01 REPORT #: [id number] PHYSICIAN: EDITH REY DO (JD) PCP: DENAGELO ASH PA-C REPORT IS CONFIDENTIAL AND NOT TO BE RELEASED WITHOUT AUTHORIZATION [facility] [address] [place], [place] [address] Signed membranes and contractions increasing in frequency and intensity. history complicated by previous at 28 weeks for preeclampsia with severe features that was the prior low transverse section. The patient was consented for repeat low transverse section. Risks, benefits, and alternatives were discussed in detail with the patient. The patient understands and wished to proceed with the procedure. DESCRIPTION OF PROCEDURE: The patient was taken to the OR. A time-out was performed to confirm correct patient, correct procedure. Spinal anesthesia was adequately established. The patient was prepped and draped in the supine position with a bump under the right hip. ICPs were on and running and Blackwell catheter was inserted. The patient received Ancef 3 g and azithromycin 500 mg per SCIP protocol. Heparin was not indicated. Once neuraxial anesthesia was adequately established, a Pfannenstiel skin incision was made through the prior scar and carried down to the fascia. The fascia was nicked in the midline. Fascial incision was extended bilaterally using curved Cochran scissors. Fascia was grasped, elevated and the underlying rectus dissected off bluntly and sharply. Rectus was dissected bluntly sharply in midline and the peritoneum was entered bluntly. Peritoneal incision was extended cephalad, caudad using blunt sharp dissection. Lower uterine segment was identified and no pelvic or abdominal adhesions were noted. The Bassam self retractor was placed and the lower uterine segment visualized. It appears normal without significant thinness or other abnormalities. Hysterotomy was performed using a surgical scalpel returning clear amniotic fluid. Hysterotomy was extended bilaterally using blunt dissection. Surgeon's hand was placed in the uterine cavity and the elevated in the abdomen, delivered with assistance of fundal pressure. The was vigorous and cried. Cord was doubly clamped, cut, and handed to the awaiting pediatric team for the care. Cord blood was obtained for routine analysis. Placenta was expressed, intact with a centrally inserted three-vessel cord. Bleeding was exceedingly scant. Pitocin was administered per protocol. Normal uterus, tubes, and ovaries were appreciated. Hysterotomy was then repaired using 0-Monocryl in two layers, the first being a running locked layer and the second being a running imbricated layer in the vertical manner. Excellent hemostasis was appreciated. The pelvis was irrigated and found to be hemostatic. The peritoneum was reapproximated using 2-0 Vicryl in a running nonlocked manner. Rectus was made hemostatic with judicious use of Bovie electrocautery and rectus was plicated loosely in the midline with three interrupted sutures of 0-Vicryl. Fascia was reapproximated using 0-Vicryl in a running nonlocked manner. Subcu was made hemostatic with Bovie electrocautery and was reapproximated using 3-0 Vicryl in a running nonlocked manner. Skin was reapproximated with surgical kathie. The uterus was Crede'd for scant amount of blood. The patient remained in the OR for postoperative TAP block per Anesthesia. Sponge, needle, and instrument counts correct x2 at the end of the procedure. Electronically Signed By: EDITH MARTINEZ) DO PIA 11/04/24 1710 PATIENT NAME: AMAN MEI OPERATIVE REPORT DATE OF : 01 REPORT #: [id number] PHYSICIAN: EDITH REY DO (JD) PCP: DEANGELO ASH PA-C REPORT IS CONFIDENTIAL AND NOT TO BE RELEASED WITHOUT AUTHORIZATION [address] [address] Signed Edith Rey DO JDW/MODL /[id number] Copies: ~ Electronically Signed By: EDITH REY DO (JD) 11/04/24 1710 PATIENT NAME: AMAN MEI OPERATIVE REPORT DATE OF : 01 REPORT #: [id number] PHYSICIAN: EDITH REY DO (JD) PCP: DEANGELO ASH PA-C REPORT IS CONFIDENTIAL AND NOT TO BE RELEASED WITHOUT AUTHORIZATION
[2024-11-04] MEDS ORDERED: SENNOSIDES/DOCUSATE 1 EA TAB PO SCH (21:00)
[2024-11-05] MEDS ORDERED: LACTATED RINGER'S 1,000 ML IV SCH (05:00)
[2024-11-05 05:54] LABS: HEMATOCRIT 29.8 % (35.0-50.0); HEMOGLOBIN 10.1 g/dL (12.0-18.0); MCH 28.7 (27-36); MCHC 33.9 g/dl (30-36); MCV 84.7 fl (81-99); RBC 3.52 M/ul (4.3-5.7); RDW 15.8 (10.5-15.0)
[2024-11-05] MEDS ORDERED: ENOXAPARIN SODIUM 40 MG/0.4 ML SYR SUB-Q SCH (09:00)
[2024-11-05] MEDS ORDERED: IBUPROFEN 600 MG TAB PO SCH (14:00)
== END 2024-11-06 16:50 | disposition home or self-care (01) | DRG 788 ==
LOC: FBCO 09:25 → FBC 10:10
PROVIDERS: ADMIT Obstetrics & Gynecology; ATTEND Obstetrics & Gynecology
PROC: 10D00Z1 Extraction of Products of Conception, Low, Open Approach (ICD-10-PCS; principal; 2024-11-04 11:30)
DX: O34.211 Maternal care for low transverse scar from previous cesarean delivery (principal); O99.214 Obesity complicating childbirth; Z3A.38 38 weeks gestation of pregnancy; Z37.0 Single live birth; Z90.49 Acquired absence of other specified parts of digestive tract
CPT/HCPCS: 01961; 36415; 59025; 76942; 80307; 84112; 85027; 86850; 86900; 86901; A9270; G0463; J0131; J0456; J0690; J1100; J1650; J1885; J2003; J2274; J2371; J2405; J2590; J2795; J3010; J7060; J7121

== ENCOUNTER 2025-06-09 20:56 | Emergency (ER) | payer OTHER ==
[~2025-06-09] VITALS: Ht 152.4 cm; Wt 98.3 kg
[2025-06-09] MEDS ORDERED: LIDOCAINE HCL 4% 50 ML BTL TOP ONE (21:45)
[2025-06-09 21:57] VITALS: BP 137/88
== END 2025-06-09 21:57 | disposition home or self-care (01) ==
LOC: ED 20:56
DX: J02.9 Acute pharyngitis, unspecified (principal); Z79.82 Long term (current) use of aspirin
CPT/HCPCS: 87651; 99283

== ENCOUNTER 2025-07-28 17:02 | Emergency (ER) | payer OTHER ==
[~2025-07-28] VITALS: Ht 152.4 cm; Wt 98.3 kg
--- OUTSIDE RECORDS SUMMARY | 2025-07-28 17:16 | XMS | Continuity of Care Document ---
Demographics + + + | Address | [address] | | | [place] [address] | + + + | Preferred Language | Unknown | + + + | Marital Status | Domestic partner | + + + | Orthodoxy Affiliation | Unknown | + + + | Race | White | + + + | Ethnic Group | Not or | + + + Author + + + | Author | [facility] | + + + | Organization | [facility] | + + + | Address | [address] | | | [place] [address] | + + + | Phone | | + + + Care Team Providers + + + + | Care Brake Operator Name | Role | Phone | + + + + Unavailable | Unavailable | + + + + Unavailable | Unavailable | + + + + Allergies No information. Encounters No information. Functional Status No information. Immunizations No information. Medications + + + + | date | description | facility | + + + + | (no date) | LACTULOSE | [facility] | | | | [facility] | + + + + | (no date) | NORETHINDRONE | [facility] | | | | [facility] | + + + + | (no date) | IBUPROFEN | [facility] | | | | [facility] | + + + + | (no date) | VANCOMYCIN HCL | [facility] | | | | [facility] | + + + + | (no date) | ASCORBIC ACID | [facility] | | | | [facility] | + + + + | (no date) | ASPIRIN | [facility] | | | | [facility] | + + + + | (no date) | POLYETHYLENE GLYCOL 3350 | [facility] | | | | [facility] | + + + + Problems + + + + | date | description | facility | + + + + | 2025-06-09 00:00 | Viral pharyngitis | [facility] | | | | [facility] | + + + + Procedures No information. Results/Labs No information. Social History +--------+ + + | date | description | facility | +--------+ + + Vital Signs + + + +---------+ | date | measurement | value | units | + + + +---------+ | 2025-06-09 00:00 | BMI | 42.3 | kg/m2 | + + + +---------+ | 2025-06-09 00:00 | BP_diastolic | 88 | mmHg | + + + +---------+ | 2025-06-09 00:00 | BP_systolic | 137 | mmHg | + + + +---------+ | 2025-06-09 00:00 | heart_rate | 71 | /min | + + + +---------+ | 2025-06-09 00:00 | height_metric | 152.4 | cm | + + + +---------+ | 2025-06-09 00:00 | height_standard | 60 | in | + + + +---------+ | 2025-06-09 00:00 | o2_saturation | 99 | % | + + + +---------+ | 2025-06-09 00:00 | respiration_rate | 17 | /min | + + + +---------+ | 2025-06-09 00:00 | | 98.2 | F | | | temperature_standar | | | | | d | | | + + + +---------+ | 2025-06-09 00:00 | weight_metric | 98.299 | kg | + + + +---------+ | 2025-06-09 00:00 | weight_standard | 216.712 | lb | + + + +---------+"
[2025-07-28 20:07] LABS: BLOOD/HGB, URINE NEGATIVE (Negative); KETONE, URINE SMALL (Negative); LEUK ESTERASE, URINE NEGATIVE (negative); NITRITE, URINE NEGATIVE (negative)
[2025-07-28] MEDS ORDERED: MORPHINE SULFATE 4 MG/ML VIAL IV ONE (20:15)
[2025-07-28] MEDS ORDERED: SODIUM CHLORIDE 0.9% 1,000 ML IV ONE (20:15)
[2025-07-28 20:43] LABS: BASOPHILS 0.3 % (0.1-1.2); EOSINOPHILS 1.3 % (0.7-5.8); LYMPHOCYTES 26.7 % (19.3-51.7); MCH 28.7 PG (25.6-32.2); MCHC 33.9 g/dL (32.2-35.5); MCV 84.5 fL (79.4-94.8); MONOCYTES 6.0 % (4.7-12.5); NEUTROPHILS 65.4 % (34.0-71.1); RBC 4.64 M/uL (3.93-5.22)
[2025-07-28 21:05] LABS: ALT (SGPT) 22.0 U/L (14-59); AST (SGOT) 13.0 U/L (15-37); GLOMERULAR FILTRATION RATE,EST 118.0 mL/min (>60); PROTEIN, TOTAL 7.9 g/dL (6.4-8.2); UREA NITROGEN 10.0 mg/dL (7-18)
[2025-07-28] MEDS ORDERED: ONDANSETRON 4 MG TAB ODT SL ONE (21:30)
[2025-07-28] MEDS ORDERED: MORPHINE SULFATE 10 MG/ML VIAL IM ONE (21:30)
[2025-07-29] MEDS ORDERED: ONDANSETRON ODT8 MG PO (00:37)
[2025-07-29] MEDS ORDERED: LEVSIN-SL0.125 MG SL (00:37)
[2025-07-29] MEDS ORDERED: ONDANSETRON 4 MG HOME.PACK SL ONE (00:45)
[2025-07-29] MEDS ORDERED: DICYCLOMINE HCL 10 MG HOME.PACK PO ONE (00:45)
[2025-07-29] MEDS ORDERED: TRAMADOL HCL 50 MG HOME.PACK PO ONE (00:45)
[2025-07-29] MEDS ORDERED: DICYCLOMINE HCL 10 MG HOME.PACK ONE (00:48)
[2025-07-29 01:11] VITALS: BP 117/67
== END 2025-07-29 01:11 | disposition home or self-care (01) ==
LOC: ED 17:02
PROVIDERS: Family Medicine
DX: R10.10 Upper abdominal pain, unspecified (principal)
CPT/HCPCS: 36415; 74176; 80053; 81003; 83690; 84703; 85025; 96372; 99284-25; A9270; J2270

== ENCOUNTER 2025-08-02 15:11 | Emergency (ER) | payer OTHER ==
[~2025-08-02] VITALS: Ht 152.4 cm; Wt 92.0 kg
--- OUTSIDE RECORDS SUMMARY | ~2025-08-02 | XMS | Continuity of Care Document ---
Demographics + + + | Address | [address] | | | [place] [address] | + + + | Preferred Language | Unknown | + + + | Marital Status | Domestic partner | + + + | Restorationist Affiliation | Unknown | + + + | Race | White | + + + | Ethnic Group | Not or | + + + Author + + + | Author | [facility] | + + + | Organization | [facility] | + + + | Address | [address] | | | [place] [address] | + + + | Phone | | + + + Care Team Providers + + + + | Care Recruiting Scheduler Name | Role | Phone | + + + + Unavailable | Unavailable | + + + + Unavailable | Unavailable | + + + + Allergies No information. Encounters No information. Functional Status No information. Immunizations No information. Medications + + + + | date | description | facility | + + + + | (no date) | [facility]ULOSE | [facility] | | | | [facility] | + + + + | (no date) | [facility]INDRONE | [facility] | | | | [facility] | + + + + | (no date) | IBUPROFEN | [facility] | | | | [facility] | + + + + | (no date) | VANCOMYCIN HCL | [facility] | | | | [facility] | + + + + | (no date) | ASCORBIC ACID | [facility] | | | | [facility] | + + + + | (no date) | ASPIRIN | [facility] | | | | [facility] | + + + + | (no date) | POLYETHYLENE GLYCOL 3350 | [facility] | | | | [facility] | + + + + Problems + + + + | date | description | facility | + + + + | 2025-06-09 00:00 | Viral pharyngitis | [facility] | | | | [facility] | + + + + Procedures No [...]
[~2025-08-02 15:11] MED LIST changes: +LEVSIN-SL0.125 MG SL
--- OUTSIDE RECORDS SUMMARY | 2025-08-02 15:18 | XMS ---
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 PHONE: [phone] -Zarina- Dentist: Refrigerating Oiler Current [facility] PHONE: [phone] CARE, [facility]: Multi-Specialty Current FAMILY PHONE: Unknown TELMA DONOHUE Current PHONE: Unknown Care Guidelines exist for the following facilities: [facility] ( 12/25/2018 ) Ignacio VISIT COUNT (12 MO.) 4 MARISELA Banks TOTAL 4 NOTE: Visits indicate total known visits. ED/UCC VISIT TRACKING (12 MO.) 08/02/2025 15:11 [facility] [place] TYPE: Emergency COMPLAINT: - COLD SYMPTOMS 07/28/2025 17:02 MAR[facility]ELA [facility] [place] TYPE: Emergency COMPLAINT: - LT ABD PAIN DIAGNOSES: - Left lower quadrant pain - Upper abdominal pain, unspecified 06/09/2025 20:57 [facility]A [facility] [place] TYPE: Emergency COMPLAINT: - SORE THROAT DIAGNOSES: - Acute pharyngitis, unspecified - USP (current) use of aspirin 08/25/2024 04:36 [facility]A [facility] [place] TYPE: Emergency COMPLAINT: - DIFFICULTY BREATHING DIAGNOSES: - 29 weeks gestation of - Other nursing home (current) drug therapy - Other specified diseases and conditions complicating - Other viral diseases complicating , third trimester - Viral infection, unspecified INPATIENT VISIT TRACKING (12 MO.) 11/04/2024 10:10 MARISELA [facility] [place] TYPE: [facility] COMPLAINT: - REPEAT C SECTION DIAGNOSES: - 38 weeks gestation of - 38 weeks gestation of - Acquired absence of other specified parts of digestive tract - Acquired absence of other specified parts of digestive tract - Maternal care for low transverse scar from previous delivery - Obesity complicating childbirth - Obesity complicating childbirth - Single live - Single live [email or web address]
[2025-08-02] MEDS ORDERED: ACETAMINOPHEN 500 MG TAB PO ONE (16:15)
[2025-08-02] MEDS ORDERED: IBUPROFEN 600 MG TAB PO ONE (16:15)
[2025-08-02 17:13] LABS: BLOOD/HGB, URINE NEGATIVE (Negative); KETONE, URINE SMALL (Negative); LEUK ESTERASE, URINE TRACE (negative); NITRITE, URINE NEGATIVE (negative)
[2025-08-02 17:22] LABS: BACTERIA, URINE 1+ /hpf (negative); CASTS, URINE NONE SEEN \\lpf; CRYSTALS, URINE NONE SEEN (0-1+); EPITHELIAL CELLS, URINE SQUAMOUS 2+ /lpf (0-1+); REFLEX CULTURE, URINE No (No)
[2025-08-02 17:51] VITALS: BP 123/79
[2025-08-03] MEDS ORDERED: PROMETHAZINE HC25 M1 PO (22:56)
== END 2025-08-02 17:52 | disposition home or self-care (01) ==
LOC: ED 15:11
PROVIDERS: Emergency Medicine
DX: B34.9 Viral infection, unspecified (principal)
CPT/HCPCS: 81001; 99284; A9270

== ENCOUNTER 2025-08-03 21:04 | Emergency (ER) | payer OTHER ==
[~2025-08-03] VITALS: Ht 152.4 cm; Wt 92.0 kg
--- OUTSIDE RECORDS SUMMARY | ~2025-08-03 | XMS | Continuity of Care Document ---
Demographics + + + | Address | [address] | | | [place] [address] | + + + | Preferred Language | Unknown | + + + | Marital Status | Domestic partner | + + + | Yarsanism Affiliation | Unknown | + + + | Race | White | + + + | Ethnic Group | Not or | + + + Author + + + | Author | [facility] | + + + | Organization | [facility] | + + + | Address | [address] | | | [place] [address] | + + + | Phone | | + + + Care Team Providers + + + + | Care Mission Support Specialist Name | Role | Phone | + + + + Unavailable | Unavailable | + + + + Unavailable | Unavailable | + + + + Allergies and Intolerances + + + + + + | date | description | facility | reaction | severity | + + + + + + | 2025-07-28 | UNK | [facility] - | (no reaction) | (no severity) | | 00:00 | | [facility] | | | + + + + + + Encounters No information. Functional Status No information. Immunizations No information. Medications + + + + | date | description | facility | + + + + | (no date) | LACTULOSE | [facility] | | | | [facility] | + + + + | (no date) | NORETHINDRONE | [facility] | | | | [facility] | + + + + | (no date) | IBUPROFEN | [facility] | | | | [facility] | + + + + | (no date) | VANCOMYCIN HCL | [facility] | | | | [facility] | + + + + | (no date) | ASCORBIC ACID | [facility] | | | | [facility] | + + + + | (no date) | ASPIRIN | [facility] | | | | [facility] | + + + + | (no date) | POLYETHYLENE GLYCOL 3350 | [facility] | | | | [facility] | + + + + Problems + + + + | date | description | facility | + + + + | 2025-06-09 00:00 | Viral pharyngitis | [facility] | | | | [facility] | + + + + | 2025-07-29 00:00 | Pain of upper abdomen | [facility] | | | | [facility] | + + + + Procedures No information. Results/Labs +--------+--------+ +---------+--------+---------+ | test | date | facility | value | unit | notes | +--------+--------+ +---------+--------+---------+ + + | Result panel 1 | + + + + + +--------+ + + | WBC # Bld | 2025-07-28 | | 6.97 | (missing) | (missing) | | Auto | 20:39:08 | [facility] | | | | + + + +--------+ + + + + | Result panel 2 | + + + + + +--------+ + + | RBC # Bld | 2025-07-28 | | 4.64 | (missing) | (missing) | | Auto | 20:39:08 | [facility] | | | | + + + +--------+ + + + + | Result panel 3 | + + + + + +--------+ + + | Hgb | 2025-07-28 | | 13.3 | (missing) | (missing) | | Bld-mCnc | 20:39:08 | [facility] | | | | + + + +--------+ + + + + | Result panel 4 | + + + + + +--------+ + + | Hct VFr.DF | 2025-07-28 | | 39.2 | (missing) | (missing) | | Bld Auto | 20:39:08 | [facility] | | | | | | | - | | | | | | | [facility] | | | | + + + +--------+ + + + + | Result panel 5 | + + + + + +--------+ + + | RBC Auto | 2025-07-28 | | 84.5 | (missing) | (missing) | | | 20:39:08 | [facility] | | | | + + + +--------+ + + + + | Result panel 6 | + + + + + +--------+ + + | MCH RBC Qn | 2025-07-28 | | 28.7 | (missing) | (missing) | | Auto | 20:39:08 | [facility] | | | | + + + +--------+ + + + + | Result panel 7 | + + + + + +--------+ + + | MCHC RBC | 2025-07-28 | | 33.9 | (missing) | (missing) | | Auto-EntMCnc | 20:39:08 | [facility] | | | | + + + +--------+ + + + + | Result panel 8 | + + + + + +-------+ + + | Platelet # | 2025-07-28 | | 198 | (missing) | (missing) | | Bld Auto | 20:39:08 | [facility] | | | | + + + +-------+ + + + + | Result panel 9 | + + + + + +--------+ + + | Neutrophils | 2025-07-28 | | 65.4 | (missing) | (missing) | | NFr Bld | 20:39:08 | [facility] | | | | | Auto | [facility] | | | | + + + +--------+ + + + + | Result panel 10 | + + + + + +--------+ + + | Lymphocytes | 2025-07-28 | | 26.7 | (missing) | (missing) | | NFr Bld | 20:39:08 | [facility] | | | | | Auto | [facility] | | | | + + + +--------+ + + + + | Result panel 11 | + + + + + +-------+ + + | Monocytes | 2025-07-28 | | 6.0 | (missing) | (missing) | | NFr Bld Auto | 20:39:08 | [facility] | | | | + + + +-------+ + + + + | Result panel 12 | + + + + + +-------+ + + | Eosinophil | 2025-07-28 | | 1.3 | (missing) | (missing) | | NFr Bld Auto | 20:39:08 | [facility] | | | | + + + +-------+ + + + + | Result panel 13 | + + + + + +-------+ + + | Basophils | 2025-07-28 | | 0.3 | (missing) | (missing) | | NFr Bld Auto | 20:39:08 | [facility] | | | | + + + +-------+ + + + + | Result panel 14 | + + + + + +------+---------+ + | Glucose | 2025-07-28 | | 79 | mg/dL | (missing) | | SerPl-mCnc | 20:39:08 | [facility] | | | | + + + +------+---------+ + + + | Result panel 15 | + + + + + +------+---------+ + | BUN | 2025-07-28 | | 10 | mg/dL | (missing) | | SerPl-mCnc | 20:39:08 | [facility] | | | | + + + +------+---------+ + + + | Result panel 16 | + + + + + +--------+---------+ + | Creat | 2025-07-28 | | 0.73 | mg/dL | (missing) | | SerPl-mCnc | 20:39:08 | [facility] | | | | + + + +--------+---------+ + + + | Result panel 17 | + + + + + +-------+ + + | eGFRcr | 2025-07-28 | | 118 | (missing) | (missing) | | SerPlBld | 20:39:08 | [facility] | | | | | CKD-EPI 2020 | [facility] | | | | + + + +-------+ + + + + | Result panel 18 | + + + + + +---------+ + + | BUN/Creat | 2025-07-28 | | 13.69 | (missing) | (missing) | | SerPl | 20:39:08 | [facility] | | | | + + + +---------+ + + + + | Result panel 19 | + + + + + +-------+ + + | Sodium | 2025-07-28 | | 140 | (missing) | (missing) | | SerPl-[facility] | 20:39:08 | [facility] | | | | + + + +-------+ + + + + | Result panel 20 | + + + + + +-------+ + + | Potassium | 2025-07-28 | | 3.5 | (missing) | (missing) | | SerPl-sCnc | 20:39:08 | [facility] | | | | + + + +-------+ + + + + | Result panel 21 | + + + + + +-------+ + + | Chloride | 2025-07-28 | | 103 | (missing) | (missing) | | SerPl-sCnc | 20:39:08 | [facility] | | | | + + + +-------+ + + + + | Result panel 22 | + + + + + +------+ + + | CO2 | 2025-07-28 | | 26 | (missing) | (missing) | | SerPl-sCnc | 20:39:08 | [facility] | | | | + + + +------+ + + + + | Result panel 23 | + + + + + +--------+ + + | Anion Gap | 2025-07-28 | | 14.5 | (missing) | (missing) | | SerPl | 20:39:08 | [facility] | | | | | Calculated.4 | [facility]-sCnc | [facility] | | | | + + + +--------+ + + + + | Result panel 24 | + + + + + +-------+---------+ + | Calcium | 2025-07-28 | | 9.1 | mg/dL | (missing) | | SerPl-mCnc | 20:39:08 | [facility] | | | | + + + +-------+---------+ + + + | Result panel 25 | + + + + + +-------+ + + | Prot | 2025-07-28 | | 7.9 | (missing) | (missing) | | SerPl-mCnc | 20:39:08 | [facility] | | | | + + + +-------+ + + + + | Result panel 26 | + + + + + +-------+ + + | Albumin | 2025-07-28 | | 4.4 | (missing) | (missing) | | SerPl-mCnc | 20:39:08 | [facility] | | | | + + + +-------+ + + + + | Result panel 27 | + + + + + +-------+ + + | Globulin | 2025-07-28 | | 3.5 | (missing) | (missing) | | Ser-mCnc | 20:39:08 | [facility] | | | | + + + +-------+ + + + + | Result panel 28 | + + + + + +--------+ + + | | 2025-07-28 | | 1.26 | (missing) | (missing) | | Albumin/Glob | 20:39:08 | [facility] | | | | | SerPl | [facility] | | | | + + + +--------+ + + + + | Result panel 29 | + + + + + +-------+---------+ + | Bilirub | 2025-07-28 | | 0.4 | mg/dL | (missing) | | SerPl-mCnc | 20:39:08 | [facility] | | | | + + + +-------+---------+ + + + | Result panel 30 | + + + + + +------+ + + | AST | 2025-07-28 | | 13 | (missing) | (missing) | | SerPl-cCnc | 20:39:08 | [facility] | | | | + + + +------+ + + + + | Result panel 31 | + + + + + +------+ + + | ALT | 2025-07-28 | | 22 | (missing) | (missing) | | SerPl-cCnc | 20:39:08 | [facility] | | | | + + + +------+ + + + + | Result panel 32 | + + + + + +-------+ + + | ALP | 2025-07-28 | | 106 | (missing) | (missing) | | SerPl-cCnc | 20:39:08 | [facility] | | | | + + + +-------+ + + + + | Result panel 33 | + + + + + +------+ + + | Lipase | 2025-07-28 | | 31 | (missing) | (missing) | | SerPl-cCnc | 20:39:08 | [facility] | | | | + + + +------+ + + + + | Result panel 34 | + + + + + + + + + | HCG SerPl | 2025-07-28 | | NEGATIVE | (missing) | (missing) | | Ql | 20:39:08 | [facility] | | | | + + + + + + + + + | Result panel 35 | + + + + + + + + + | Color Ur | 2025-08-02 | | YELLOW | (missing) | (missing) | | Auto | 17:03:08 | [facility] | | | | + + + + + + + + + | Result panel 36 | + + + + + + + + + | | 2025-08-02 | | NORMAL | (missing) | (missing) | | Urobilinogen | 17:03:08 | [facility] | | | | | Ur | [facility] Strip-mCnc | | [facility] | | | | + + + + + + + + + | Result panel 37 | + + + + + + + + + | Nitrite Ur | 2025-08-02 | | NEGATIVE | (missing) | (missing) | | Ql Strip | 17:03:08 | [facility] | | | | | | | - | | | | | | | [facility] | | | | + + + + + + + + + | Result panel 38 | + + + + + +---------+ + + | Leukocyte | 2025-08-02 | | TRACE | (missing) | (missing) | | esterase Ur | 17:03:08 | [facility] | | | | | Ql Strip | [facility] | | | | + + + +---------+ + + + + | Result panel 39 | + + + + + +-------+ + + | RBC #/area | 2025-08-02 | | 0-1 | (missing) | (missing) | | UrnS HPF | 17:03:08 | [facility] | [facility] | | | | + + + +-------+ + + + + | Result panel 40 | + + + + + +-------+ + + | WBC #/area | 2025-08-02 | | 4-6 | (missing) | (missing) | | UrnS HPF | 17:03:08 | [facility] | | | | | [facility] | | | | + + + +-------+ + + + + | Result panel 41 | + + + + + + + + + | Epi Cells | 2025-08-02 | | SQUAMOUS 2+ | (missing) | (missing) | | #/area UrnS | 17:03:08 | [facility] | | | | | HPF | [facility] | | | | + + + + + + + + + | Result panel 42 | + + + + + + + + + | Crystals | 2025-08-02 | | NONE SEEN | (missing) | (missing) | | UrnS Micro | 17:03:08 | [facility] | | | | | | [facility] | | | | + + + + + + + + + | Result panel 43 | + + + + + +------+ + + | Bacteria | 2025-08-02 | | 1+ | (missing) | (missing) | | #/area UrnS | 17:03:08 | [facility] | | | | | HPF | [facility] | | | | + + + +------+ + + + + | Result panel 44 | + + + + + + + + + | Nina | 2025-08-02 | | NONE SEEN | (missing) | (missing) | | #/area UrnS | 17:03:08 | [facility] | | | | | LPF | [facility] | | | | + + + + + + + + + | Result panel 45 | + + + + + +------+ + + | Bacteria Ur | 2025-08-02 | | No | (missing) | (missing) | | Cult | 17:03:08 | [facility] | | | | | | [facility] | | | | + + + +------+ + + + + | Result panel 46 | + + + + + +---------+ + + | Character | 2025-08-02 | | CLEAR | (missing) | (missing) | | Ur | 17:03:08 | [facility] | | | | | [facility] | | | | + + + +---------+ + + + + | Result panel 47 | + + + + + + + + + | Urn Spec | 2025-08-02 | | CLEAN CATCH | (missing) | (missing) | | Collect Meth | 17:03:08 | [facility] | | | | | Ur | [facility] | | | | + + + + + + + + + | Result panel 48 | + + + + + + + + + | Glucose Ur | 2025-08-02 | | NEGATIVE | (missing) | (missing) | | Ql Strip | 17:03:08 | [facility] | [facility] | | [facility] | | | | + + + + + + + + + | Result panel 49 | + + + + + + + + + | Bilirub Ur | 2025-08-02 | | POSITIVE | (missing) | (missing) | | Ql Strip | 17:03:08 | [facility] | | | | + + + + + + + + + | Result panel 50 | + + + + + +---------+ + + | Ketones Ur | 2025-08-02 | | SMALL | (missing) | (missing) | | Ql Strip | 17:03:08 | [facility] | | [facility] | | | | + + + +---------+ + + + + | Result panel 51 | + + + + + +---------+ + + | Sp Gr Ur | 2025-08-02 | | 1.025 | (missing) | (missing) | | Strip | 17:03:08 | [facility] - [facility] | | | | | [facility] | | | | + + + +---------+ + + + + | Result panel 52 | + + + + + + + + + | Hgb Ur Ql | 2025-08-02 | | NEGATIVE | (missing) | (missing) | | Strip | 17:03:08 | [facility] | | | | + + + + + + + + + | Result panel 53 | + + + + + +-------+ + + | pH Ur Strip | 2025-08-02 | | 6.0 | (missing) | (missing) | | | 17:03:08 | [facility] | | | | + + + +-------+ + + + + | Result panel 54 | + + + + + + + + + | Prot Ur | 2025-08-02 | | NEGATIVE | (missing) | (missing) | | [facility] | 17:03:08 | [facility] | | | | + + + + + + + Social History +--------+ + + | date [...] 216.712 | lb | + + + +---------+ | 2025-07-28 00:00 | BMI | 42.3 | kg/m2 | + + + +---------+ | 2025-07-28 00:00 | height_metric | 152.4 | cm | + + + +---------+ | 2025-07-28 00:00 | height_standard | 60 | in | + + + +---------+ | 2025-07-28 00:00 | weight_metric | 98.299 | kg | + + + +---------+ | 2025-07-28 00:00 | weight_standard | 216.712 | lb | + + + +---------+ | 2025-07-29 00:00 | BP_diastolic | 67 | mmHg | + + + +---------+ | 2025-07-29 00:00 | BP_systolic | 117 | mmHg | + + + +---------+ | 2025-07-29 00:00 | heart_rate | 71 | /min | + + + +---------+ | 2025-07-29 00:00 | o2_saturation | 99 | % | + + + +---------+ | 2025-07-29 00:00 | respiration_rate | 16 | /min | + + + +---------+ | 2025-07-29 00:00 | | 97.7 | F | | | temperature_standar | | | | | d | | | + + + +---------+ | 2025-08-02 00:00 | BMI | 39.6 | kg/m2 | + + + +---------+ | 2025-08-02 00:00 | BP_diastolic | 79 | mmHg | + + + +---------+ | 2025-08-02 00:00 | BP_systolic | 123 | mmHg | + + + +---------+ | 2025-08-02 00:00 | heart_rate | 102 | /min | + + + +---------+ | 2025-08-02 00:00 | height_metric | 152.4 | cm | + + + +---------+ | 2025-08-02 00:00 | height_standard | 60 | in | + + + +---------+ | 2025-08-02 00:00 | o2_saturation | 97 | % | + + + +---------+ | 2025-08-02 00:00 | respiration_rate | 18 | /min | + + + +---------+ | 2025-08-02 00:00 | | 98.8 | F | | | temperature_standar | | | | | d | | | + + + +---------+ | 2025-08-02 00:00 | weight_metric | 92 | kg | + + + +---------+ | 2025-08-02 00:00 | weight_standard | 202.825 | lb | + + + +---------+"
--- OUTSIDE RECORDS SUMMARY | 2025-08-03 21:11 | XMS ---
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 PHONE: [phone] -Zarina- Dentist: Piping Design Specialist [facility] PHONE: [phone] CARE, [facility]: Multi-Specialty Current FAMILY PHONE: Unknown TELMA DONOHUE Current PHONE: Unknown Care Guidelines exist for the following facilities: [facility] ( 12/25/2018 ) Ignacio VISIT COUNT (12 MO.) 5 MARISELA Banks TOTAL 5 NOTE: Visits indicate total known visits. ED/UCC VISIT TRACKING (12 MO.) 08/03/2025 21:05 [facility]A [facility] [place] TYPE: Emergency COMPLAINT: - FEVER 08/02/2025 15:11 [facility] [place] TYPE: Emergency COMPLAINT: - COLD SYMPTOMS 07/28/2025 17:02 [facility] [place] TYPE: Emergency COMPLAINT: - LT ABD PAIN DIAGNOSES: - Left lower quadrant pain - Upper abdominal pain, unspecified 06/09/2025 20:57 [facility] [place] TYPE: Emergency COMPLAINT: - SORE THROAT DIAGNOSES: - Acute pharyngitis, unspecified - detention (current) use of aspirin 08/25/2024 04:36 [facility] [place] TYPE: Emergency COMPLAINT: - DIFFICULTY BREATHING DIAGNOSES: - 29 weeks gestation of - Other shelter (current) drug therapy - Other specified diseases and conditions complicating - Other viral diseases complicating , third trimester - Viral infection, unspecified INPATIENT VISIT TRACKING (12 MO.) 11/04/2024 10:10 MARISELA Reeves [place] TYPE: [facility] COMPLAINT: - REPEAT C SECTION DIAGNOSES: - 38 weeks gestation of - 38 weeks gestation of - Acquired absence of other specified parts of digestive tract - Acquired absence of other specified parts of digestive tract - Maternal care for low transverse scar from previous delivery - Obesity complicating childbirth - Obesity complicating childbirth - Single live - Single live [email or web address]
[2025-08-03] MEDS ORDERED: KETOROLAC TROMETHAMINE 60 MG/2 ML VIAL IM ONE (21:45)
[2025-08-03] MEDS ORDERED: ONDANSETRON 4 MG TAB ODT SL ONE (21:45)
[2025-08-03] MEDS ORDERED: PSEUDOEPHEDRINE HCL 30 MG TAB PO ONE (21:45)
[2025-08-03 22:31] LABS: INFLUENZA B NAA NEGATIVE (NEGATIVE); RESPIRATORY SYNCYTIAL VIR NAA NEGATIVE (NEGATIVE)
[2025-08-03] MEDS ORDERED: PROMETHAZINE HC25 M1 PO (22:56)
[2025-08-03] MEDS ORDERED: OSELTAMIVIR PHOSPHATE 75 MG HOME.PACK PO ONE (23:00)
[2025-08-03] MEDS ORDERED: PROMETHAZINE HCL 25 MG HOME.PACK PO ONE (23:00)
[2025-08-03] MEDS ORDERED: CYCLOBENZAPRINE HCL 10 MG HOME.PACK PO ONE (23:00)
[2025-08-03 23:45] VITALS: BP 138/102
== END 2025-08-03 23:40 | disposition home or self-care (01) ==
LOC: ED 21:04
PROVIDERS: Family Medicine
DX: J10.1 Influenza due to other identified influenza virus with other respiratory manifestations (principal)
CPT/HCPCS: 87502; 96372; 99283; A9270; J1885; U0002